=== PATIENT | male | born 1995 | race Caucasian/White ===

== ENCOUNTER 2020-01-09 16:09 | Inpatient (IN) | payer MEDICAID ==
[2020-01-09] MEDS ORDERED: SODIUM CHLORIDE 0.9% 1,000 ML IV ONE (17:57)
[2020-01-09] MEDS ORDERED: VANCOMYCIN IV PER PHARMACY 1 EACH MISC MISCELLANE PRN ×2 (17:57→23:42)
[2020-01-09] MEDS ORDERED: ACETAMINOPHEN TAB 500 MG TAB PO STA (17:59)
[2020-01-09] MEDS ORDERED: IBUPROFEN 600 MG TAB PO STA (17:59)
[2020-01-09] MEDS ORDERED: VANCOMYCIN 1,500 MG in SODIUM CHLORIDE 0.9% 250 ML IVPB STA (18:11)
[2020-01-09] MEDS ORDERED: diphenhydrAMINE 25 MG CAP PO STA (18:28)
[2020-01-09 19:00] LABS: Basophils % (A) 0 %; Eosinophils # (A) 0.1 k/uL (0-0.7); Eosinophils % (A) 2 %; HCT 42.5 % (39.0-53.0); HGB 14.1 gm/dL (13.0-17.5); Lymphocytes # (A) 1.5 k/uL (1.0-4.8); Lymphocytes % (A) 29 %; MCH 26.8 pg (25.0-35.0); MCHC 33.2 g/dL (31.0-37.0); MCV 80.6 fL (80.0-100.0); Mean Platelet Volume 9.8; Monocytes # (A) 0.3 k/uL (0-1.0); Monocytes % (A) 6 %; Neutrophils # (A) 3.1 k/uL (1.3-7.7); Neutrophils % (A) 62 %; RBC 5.27 m/uL (4.30-5.90); RDW 14.3 % (11.5-15.5); WBC 5.1 k/uL (3.8-10.6)
[2020-01-09 19:42] LABS: Platelet Count 68 k/uL (150-450)
[2020-01-09 19:57] LABS: ALT 15 U/L (4-49); AST 39 U/L (17-59); African American GFR (CKD) >90 (>60 ml/min/1.73 sqM); Albumin 4.7 g/dL (3.5-5.0); Alkaline Phosphatase 94 U/L (38-126); Anion Gap 9 mmol/L; Blood Urea Nitrogen 13 mg/dL (9-20); Calcium 9.3 mg/dL (8.4-10.2); Carbon Dioxide 25 mmol/L (22-30); Chloride 104 mmol/L (98-107); Glucose 96 mg/dL (74-99); Non-African American GFR(CKD) >90 (>60 ml/min/1.73 sqM); Potassium 4.4 mmol/L (3.5-5.1); Sodium 138 mmol/L (137-145); Total Bilirubin 0.5 mg/dL (0.2-1.3); Total Protein 8.1 g/dL (6.3-8.2)
[2020-01-09] MEDS ORDERED: NALOXONE 0.4 MG/ML 1 ML VIAL IV PRN (20:21)
[2020-01-09] MEDS ORDERED: ACETAMINOPHEN TAB 325 MG TAB PO PRN (20:21)
--- NOTE | 2020-01-09 20:21 | ED ---
General Adult HPI - General Source: patient Mode of arrival: ambulatory Limitations: no limitations <Elizabeth Villa - Last Filed: 01/09/20 20:15> <Priscila Felix - Last Filed: 01/12/20 13:23> - General Chief complaint: Extremity Injury, Upper Stated complaint: lt hand infection Time Seen by Provider: 01/09/20 16:49 - History of Present Illness Initial comments: 24-year-old male patient presents to the emergency department today for evaluation of left hand pain, swelling, redness. Patient states that symptoms started 2-3 days ago after he shot up with heroin. Patient states that he has significant pain to his thumb especially with any type of movement. Denies numbness or tingling to the hand. He denies any fever or chills. Denies any other medical problems. Patient denies any recent rash, cough, shortness of breath, chest pain, abdominal pain, nausea, vomiting, diarrhea, constipation, back pain, numbness, tingling, dizziness, weakness, hematuria, dysuria, urinary urgency, urinary frequency, headache, visual changes, or any other complaints. (Elizabeth Villa) - Related Data Home Medications Medication Instructions Recorded Confirmed Buprenorphine HCl/Naloxone HCl 1 tab SL BID 01/09/20 01/09/20 [Zubsolv 5.7-1.4 mg Tablet Sl] lamoTRIgine 150 mg PO DAILY 01/09/20 01/09/20 Allergies Allergy/AdvReac Type Severity Reaction Status Date / Time tree nut Allergy Anaphylaxis Verified 01/09/20 20:42 vancomycin AdvReac Rapid Verified 01/09/20 22:08 Heart Rate Review of Systems ROS Other: All systems not noted in ROS Statement are negative. <Elizabeth Villa - Last Filed: 01/09/20 20:15> ROS Other: All systems not noted in ROS Statement are negative. <Priscila Felix - Last Filed: 01/12/20 13:23> ROS Statement: Those systems with pertinent positive or pertinent negative responses have been documented in the HPI. Past Medical History Past Medical History: No Reported History History of Any Multi-Drug Resistant Organisms: None Reported Past Surgical History: No Surgical Hx Reported Past Psychological History: Bipolar Smoking Status: Never smoker Past Alcohol Use History: Rare Past Drug Use History: IV Drug Use, Marijuana, Opiates <Elizabeth Villa M - Last Filed: 01/09/20 20:15> General Exam Limitations: no limitations General appearance: alert, in no apparent distress, other (This is a well- developed, well-nourished adult male patient in no acute distress. Vital signs upon presentation are temperature 97.9F, pulse 62, respirations 17, blood pressure 134/88, pulse ox 100% on room air.) Eye exam: Present: normal appearance, PERRL, EOMI. Absent: scleral icterus, conjunctival injection, periorbital swelling ENT exam: Present: normal exam, normal oropharynx, mucous membranes moist Respiratory exam: Present: normal lung sounds bilaterally. Absent: respiratory distress, wheezes, rales, rhonchi, stridor Cardiovascular Exam: Present: regular rate, normal rhythm, normal heart sounds. Absent: systolic murmur, diastolic murmur, rubs, gallop, clicks GI/Abdominal exam: Present: soft, normal bowel sounds. Absent: distended, tenderness, guarding, rebound, rigid Extremities exam: Present: full ROM, tenderness (Left thumb, left thenar eminence), normal capillary refill, other (There is soft tissue swelling left hand, erythema overlying. Swelling is worse over the thenar eminence and the thumb. ). Absent: normal inspection, pedal edema, joint swelling, calf tenderness Neurological exam: Present: alert, oriented X3, CN II-XII intact Psychiatric exam: Present: normal affect, normal mood Skin exam: Present: warm, dry, intact, normal color. Absent: rash <Elizabeth Villa M - Last Filed: 01/09/20 20:15> Course Vital Signs 01/09/20 01/09/20 16:10 20:00 Temperature 97.9 F 98 F Pulse Rate 62 60 Respiratory 17 20 Rate Blood Pressure 134/88 136/99 O2 Sat by Pulse 100 99 Oximetry Medical Decision Making - Lab Data Result diagrams: 01/09/20 18:25 01/09/20 19:42 <Elizabeth Villa - Last Filed: 01/09/20 20:15> - Lab Data Result diagrams: 01/12/20 06:16 01/12/20 06:16 <Priscila Felix - Last Filed: 01/12/20 13:23> - Medical Decision Making 24-year-old pleasant male patient presents to the emergency department today for evaluation of left hand redness, swelling, pain. Physical examination did reveal swelling over the left hand more significant over the left thenar eminence in the thumb. There is fusiform tenderness over the thumb. Patient does have a history of IV drug use and admits to shooting up heroin 3 days ago. Labs reviewed and revealed normal white blood cell count. We'll admit to the hospital for IV antibiotics. Dr. Obregon is the patient's primary care physician he requests [facility] physician group. Dr. Davenport accepts admission and requests consult to hand surgery. (Elizabeth Villa) I was available for consultation in the emergency department. The history and physical exam were done by the midlevel provider. I was consulted for this patients care. I reviewed the case with the midlevel provider and based on their presentation of the patient, I agree with the assessment, medical decision making and plan of care as documented. I evaluated the patient myself and agree to hospital admission. Chart was dictated using [employer] dictation software. Attempts were made to correct any dictation errors however some typographical errors may persist. Patient was seen during a national state of emergency due to the Covid-19 pandemic. (Priscila Felix) - Lab Data Lab Results 01/09/20 01/09/20 01/10/20 Range/Units 18:25 19:42 06:20 WBC 5.1 6.9 (3.8-10.6) k/uL RBC 5.27 4.59 (4.30-5.90) m/uL Hgb 14.1 12.3 L (13.0-17.5) gm/dL Hct 42.5 37.2 L (39.0-53.0) % MCV 80.6 81.0 (80.0-100.0) fL MCH 26.8 26.7 (25.0-35.0) pg MCHC 33.2 32.9 (31.0-37.0) g/dL RDW 14.3 14.7 (11.5-15.5) % Plt Count 68 L 171 D (150-450) k/uL Neutrophils % 62 58 % Lymphocytes % 29 30 % Monocytes % 6 7 % Eosinophils % 2 2 % Basophils % 0 1 % Neutrophils # 3.1 4.0 (1.3-7.7) k/uL Lymphocytes # 1.5 2.1 (1.0-4.8) k/uL Monocytes # 0.3 0.5 (0-1.0) k/uL Eosinophils # 0.1 0.1 (0-0.7) k/uL Basophils # 0.0 0.0 (0-0.2) k/uL Manual Slide Review Performed Sodium 138 (137-145) mmol/L Potassium 4.4 (3.5-5.1) mmol/L Chloride 104 (98-107) mmol/L Carbon Dioxide 25 (22-30) mmol/L Anion Gap 9 mmol/L BUN 13 (9-20) mg/dL Creatinine 0.65 L (0.66-1.25) mg/dL Est GFR (CKD-EPI)AfAm >90 (>60 ml/min/1.73 sqM) Est GFR (CKD-EPI)NonAf >90 (>60 ml/min/1.73 sqM) Glucose 96 (74-99) mg/dL Calcium 9.3 (8.4-10.2) mg/dL Total Bilirubin 0.5 (0.2-1.3) mg/dL AST 39 (17-59) U/L ALT 15 (4-49) U/L Alkaline Phosphatase 94 (38-126) U/L Total Protein 8.1 (6.3-8.2) g/dL Albumin 4.7 (3.5-5.0) g/dL TSH (0.465-4.680) mIU/L Free T4 (0.78-2.19) ng/dL Vancomycin Trough ug/mL 01/10/20 01/11/20 01/11/20 Range/Units 06:20 07:08 07:08 WBC (3.8-10.6) k/uL RBC (4.30-5.90) m/uL Hgb (13.0-17.5) gm/dL Hct (39.0-53.0) % MCV (80.0-100.0) fL MCH (25.0-35.0) pg MCHC (31.0-37.0) g/dL RDW (11.5-15.5) % Plt Count (150-450) k/uL Neutrophils % % Lymphocytes % % Monocytes % % Eosinophils % % Basophils % % Neutrophils # (1.3-7.7) k/uL Lymphocytes # (1.0-4.8) k/uL Monocytes # (0-1.0) k/uL Eosinophils # (0-0.7) k/uL Basophils # (0-0.2) k/uL Manual Slide Review Sodium 141 (137-145) mmol/L Potassium 4.1 (3.5-5.1) mmol/L Chloride 105 (98-107) mmol/L Carbon Dioxide 25 (22-30) mmol/L Anion Gap 11 mmol/L BUN 13 (9-20) mg/dL Creatinine 0.76 (0.66-1.25) mg/dL Est GFR (CKD-EPI)AfAm >90 (>60 ml/min/1.73 sqM) Est GFR (CKD-EPI)NonAf >90 (>60 ml/min/1.73 sqM) Glucose 87 (74-99) mg/dL Calcium 9.0 (8.4-10.2) mg/dL Total Bilirubin 0.5 (0.2-1.3) mg/dL AST 41 (17-59) U/L ALT 14 (4-49) U/L Alkaline Phosphatase 77 (38-126) U/L Total Protein 6.9 (6.3-8.2) g/dL Albumin 4.0 (3.5-5.0) g/dL TSH 5.540 H (0.465-4.680) mIU/L Free T4 1.36 (0.78-2.19) ng/dL Vancomycin Trough 13.9 ug/mL Disposition Decision to Admit Reason: Admit from EC Decision Date: 01/09/20 Decision Time: 20:21 <Elizabeth Villa - Last Filed: 01/09/20 20:15> <Priscila Felix - Last Filed: 01/12/20 13:23> Clinical Impression: Cellulitis of left hand Disposition: ADMITTED IP TO THIS [facility] Condition: Serious
[2020-01-09] MEDS: KETOROLAC 30 MG/ML 1 ML VIAL IVP PRN (23:14)
--- NOTE | 2020-01-09 23:56 | P.HPIM ---
History of Present Illness H&P Date: 01/09/20 Chief Complaint: left hand swelling and reddness 24 year old male with history of IV drug abuse patient admits to relapsing last week , when he trying to inject oxycodone but missed the vein of his forearm. he admits to having bactremia in the past due to IVDA he claims that he was fine up until 2 days ago when he noticed swelling and erythema of his left hand with progressive swelling with painful and limited range of motion of his left hand fingers. he denies any numbness or tingling over his left hand, denies fever, but reports chills. he denies any history of endocarditis. he otherwise denies any other injuries to his left hand, denies any URI symptoms , abd pain , nausea or vomiting, denies any chest pain or trouble breathing. denies sick contact with others. denies any visions changes, or urinary symptoms. denies abd pain , or changes in bowel habits. patient reports shooting pain 10/10 in severity when he tries to move his left fingers radaiting proximally to his left forearm. Review of Systems Pertinent positives as noted in HPI. All other systems were reviewed and are negative Past Medical History Past Medical History: No Reported History Additional Past Medical History / Comment(s): IVDA History of Any Multi-Drug Resistant Organisms: None Reported Past Surgical History: No Surgical Hx Reported Past Psychological History: Bipolar Smoking Status: Never smoker Past Alcohol Use History: Rare Past Drug Use History: IV Drug Use, Marijuana, Opiates - Past Family History Mother Family Medical History: Hypertension Additional Family Medical History / Comment(s): Kidney issue, OCD/Bipolar and other mental health issues Medications and Allergies Home Medications Medication Instructions Recorded Confirmed Type Buprenorphine HCl/Naloxone HCl 1 tab SL BID 01/09/20 01/09/20 History [Zubsolv 5.7-1.4 mg Tablet Sl] lamoTRIgine 150 mg PO DAILY 01/09/20 01/09/20 History Allergies Allergy/AdvReac Type Severity Reaction Status Date / Time tree nut Allergy Anaphylaxis Verified 01/09/20 20:42 vancomycin AdvReac Rapid Verified 01/09/20 22:08 Heart Rate Physical Exam Vitals: Vital Signs Temp Pulse Resp BP Pulse Ox 01/09/20 20:00 98 F 60 20 136/99 99 04/15/20 16:10 97.9 F 62 17 134/88 100 Intake and Output 01/09/20 01/09/20 01/09/20 06:59 14:59 22:59 Other: Weight 70.307 kg Constitutional: No acute distress, conversant, pleasant Eyes: Anicteric sclerae, moist conjunctiva, no lid-lag Pupils equal round reactive to light ENMT: NC/AT Oropharynx clear, no erythema, or exudates Neck: Supple, FROM, no masses, or JVD No carotid bruits No thyromegaly Lungs: Clear to auscultation Clear to percussion Normal respiratory effort, no accessory muscle use Cardiovascular: Heart regular in rate and rhythm, No murmurs, gallops, or rubs No peripheral edema Abdominal: Soft Nontender, no guarding, rebound or rigidity Abdomen moving with respiration Normoactive bowel sounds No hepatomegaly, No splenomegaly No palpable mass No abdominal wall hernia noted Skin: Normal temperature, tone, texture, turgor No induration No subcutaneous nodules No rash, lesions No ulcers Extremities: erythema and swelling over the left hand limited range of motion of his left fingers, capillary refill immediate , no open wounds no drainage. No digital cyanosis No clubbing Pedal pulses intact and symmetrical Radial pulses intact and symmetrical No calf tenderness Psychiatric: Alert and oriented to person, place and time Appropriate affect fair judgement Neuro Muscles Strength 5/5 in all 4 extremities , limitation over left hand due to above Sensation to light touch grossly present throughout Cranial nerves II-XII grossly intact No focal sensory deficits Lymphatics: no palpable cervical or supraclavicular , or inguinal lymph nodes Results CBC & Chem 7: 01/09/20 18:25 01/09/20 19:42 Labs: Abnormal Lab Results - Last 24 Hours (Table) 01/09/20 01/09/20 Range/Units 18:25 19:42 Plt Count 68 L (150-450) k/uL Creatinine 0.65 L (0.66-1.25) mg/dL Assessment and Plan Assessment: 24 year old male with IVDA comes in after missing a vein during IV drug use, a week ago, and now coming with swelling and erythema over left hand of 2 days duration . suspected cellulitis anticipated length of stay > 2 midnights. 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 toradol for pain control and swelling elevated left hand tylenol for fever IVF hydration with normal saline. patient counseled to avoid drug of abuse hand surgery consult DVT ppx mechanical CODE STATUS:full code Discussed with: Patient, ER, RN Anticipated length of stay > than [address]: home A total of 70 minutes was spent on the care of this complex patient more than 50% of the time was spent in counseling and care coordination.
[2020-01-10] MEDS: SODIUM CHLORIDE 0.9% 1,000 ML IV SCH ×4 (00:15→20:35)
[2020-01-10] MEDS: diphenhydrAMINE 50 MG/ML 1 ML VIAL IVP PRN ×3 (00:15→22:49)
[2020-01-10] MEDS: VANCOMYCIN 1,250 MG in SODIUM CHLORIDE 0.9% 250 ML IVPB SCH ×3 (02:18→22:50)
[2020-01-10 07:17] LABS: Basophils % (A) 1 %; Eosinophils # (A) 0.1 k/uL (0-0.7); Eosinophils % (A) 2 %; HCT 37.2 % (39.0-53.0); HGB 12.3 gm/dL (13.0-17.5); Lymphocytes # (A) 2.1 k/uL (1.0-4.8); Lymphocytes % (A) 30 %; MCH 26.7 pg (25.0-35.0); MCHC 32.9 g/dL (31.0-37.0); Mean Platelet Volume 7.2; Monocytes # (A) 0.5 k/uL (0-1.0); Monocytes % (A) 7 %; Neutrophils % (A) 58 %; RBC 4.59 m/uL (4.30-5.90); RDW 14.7 % (11.5-15.5); WBC 6.9 k/uL (3.8-10.6)
[2020-01-10 07:18] LABS: Platelet Count 171 k/uL (150-450)
[2020-01-10 07:25] LABS: ALT 14 U/L (4-49); AST 41 U/L (17-59); African American GFR (CKD) >90 (>60 ml/min/1.73 sqM); Alkaline Phosphatase 77 U/L (38-126); Anion Gap 11 mmol/L; Blood Urea Nitrogen 13 mg/dL (9-20); Carbon Dioxide 25 mmol/L (22-30); Chloride 105 mmol/L (98-107); Glucose 87 mg/dL (74-99); Non-African American GFR(CKD) >90 (>60 ml/min/1.73 sqM); Potassium 4.1 mmol/L (3.5-5.1); Sodium 141 mmol/L (137-145); Total Bilirubin 0.5 mg/dL (0.2-1.3); Total Protein 6.9 g/dL (6.3-8.2)
[2020-01-10] MEDS: lamoTRIgine 100 MG TAB PO SCH (07:39)
[2020-01-10 10:42] VITALS: BMI 18.8
[2020-01-10] MEDS: ZUBSOLV SUBLINGUAL SCH ×2 (11:03→17:55)
--- NOTE | 2020-01-10 11:17 | CONS ---
CONSULTATION PULMONARY/CRITICAL CARE CONSULTATION: REASON FOR CONSULTATION: Cellulitis. DATE OF SERVICE: 01/10/2020 A 24-year-old male, well known to me. For a long period of time, I was his primary care physician. He does have a history of underlying mild asthma, which does not require treatment at this time. Anyway, he apparently was seen at the Urgent Care in [place] just a few days ago, maybe a week or so ago, maybe a bit longer for an infection in his left hand. At that time, he received Keflex 500 mg 3 times a day for 5 days. He states that initially it seemed like his hand improved. He describes pain, tenderness, swelling of his left hand, left wrist, left forearm all the way up to the elbow. He came into the emergency room yesterday to be evaluated. He states that it is quite painful to the touch, particularly in the left forearm area. It also is tingly in his hand. There is no fever or chills. The patient does have a history of previous IV drug abuse. More recently, he states that he has not been shooting up with any drugs, but rather he draws blood out of the vein and reinject the blood in his vein. Anyway, he denies doing IV drugs at this time. . ALLERGIES: Include TREE NUTS. MEDICATIONS: At home include I believe Suboxone and Lamictal. PRIMARY CARE PHYSICIAN: Dr. Corrales, used to be Dr. Ng. MEDICAL HISTORY: Otherwise unremarkable other than the mild asthma, which he does not require treatment for anymore. SURGICAL HISTORY: Unremarkable. He also has a history of bipolar disorder. Nonsmoker. Uses alcohol rarely. Has used opiates, IV drugs in the past and marijuana. FAMILY HISTORY: Unremarkable. Mother is healthy, who has a history of cat scratch fever and father has a history of chronic back pain. REVIEW OF SYSTEMS: CONSTITUTIONAL: Negative. NEUROLOGIC: Negative. HEENT: Negative. CARDIOVASCULAR: Negative. PULMONARY: Negative. GI: Negative. : Negative. RHEUMATOLOGIC: Negative. IMMUNOLOGIC: Negative. ENDOCRINOLOGIC: Negative. DERMATOLOGIC: Negative. MUSCULOSKELETAL: Pain, tenderness, swelling, erythema, warmth of the left hand, wrist, forearm all the way up to the elbow. Current vital signs are reviewed. Temperature is 97.6, heart rate 60, respiratory rate 16, blood pressure 108/60 with mean 76, room air saturation 96%. Appears in no acute distress. HEENT: Examination is grossly unremarkable. NECK: Supple, full range of motion. No adenopathy or thyromegaly. No neck vein distention. CARDIOVASCULAR: Examination reveals regular rhythm and rate. Heart rate 60 beats per minute. S1, S2 normal. There is no murmur. LUNGS: Reveal clear breath sounds equal. ABDOMEN: Soft. Bowel sounds are heard. EXTREMITIES: Normal except for the left upper extremity. As mentioned, there is pain and tenderness on palpation particularly to the left forearm. The left hand and wrist are quite swollen. Mobility is reduced. There is an area in the distal left forearm that is more raised and erythematous. I do not feel any axillary adenopathy. There is no lymphangitic streaking. Extremities otherwise normal. SKIN: Without rash. NEUROLOGIC: Examination is brief but nonfocal. LABS: Reviewed. White count 6.9, hemoglobin 12.3, hematocrit 37.2, platelet count normal. Sodium, potassium, chloride, CO2 normal. BUN and creatinine normal. The electrolyte profile otherwise unremarkable. I do not see that a drug screen was done and it probably should have been done. No x-rays have been done. Hand surgeon has been consulted as has the ID doctor. Medications currently include Tylenol, Benadryl, Toradol, Lamictal, Narcan, and vancomycin. ASSESSMENT: 1. Left hand, wrist and forearm cellulitis, presumably secondary to either use of IV drugs and/or injection of the patient's own blood. 2. History of bipolar disorder. 3. History of previous drug abuse. 4. History of mild asthma, which is not requiring treatment at this time. PLAN: Will await input from Infectious Disease and orthopedist. Additional recommendations and suggestions are forthcoming. Will follow along. Prognosis is guarded. The patient denies taking any IV drugs at this time. A confirmatory blood drug screen might be in order. I will leave that up to the primary. No additional recommendations are made. His current primary care physician is Dr. Corrales. [id number] / MARLENN: [id number] /
--- NOTE | 2020-01-10 13:02 | P.CNOR ---
History of Present Illness - [facility] Consult date: 01/10/20 Consult reason: other History of present illness: Patient is a 24-year-old male who presented to [facility] yesterday evening with regards to pain and swelling of his left hand. Patient has a known history of IV drug abuse, he recently relapsed 2-3 days ago and injected into his left forearm. He subsequently developed pain and swelling of the hand and fingers on the left side. Initially it was the entire hand, since being admitted to the hospital and receiving some IV antibiotics this has im proved throughout most of the hand except the thumb region. Patient admits to having previous abscesses from IV drug use, he's underwent I&D procedures at urgent care. Patient denies any previous surgery involving the left hand or wrist. Again he localizes most of the pain to the thenar eminence region of the left hand. He denies any numbness or tingling of the hand. He has good sensation throughout the entire hand and wrist. Besides the recent use of drugs, he denies any trauma to the left upper extremity. Currently patient denies any fevers, chills, episodes of nausea vomiting. Review of Systems Constitutional: Reports as per HPI Past Medical History Past Medical History: No Reported History Additional Past Medical History / Comment(s): Asthma as a child, IV drug addiction, past "blood infection" from dental procedure. History of Any Multi-Drug Resistant Organisms: None Reported Past Surgical History: No Surgical Hx Reported Additional Past Surgical History / Comment(s): Tonsils Past Psychological History: Bipolar Smoking Status: Never smoker Past Alcohol Use History: Rare Additional Past Alcohol Use History / Comment(s): Once a year Past Drug Use History: IV Drug Use, Marijuana, Opiates Additional Drug Use History / Comment(s): Smokes every couple days. Patient had been clean for 1 year and 6 days ago did IV drug use and now hand is infected. - Past Family History Mother Family Medical History: Hypertension Additional Family Medical History / Comment(s): Kidney issue, OCD/Bipolar and other mental health issues Medications and Allergies Home Medications Medication Instructions Recorded Confirmed Type Buprenorphine HCl/Naloxone HCl 1 tab SL BID 01/09/20 01/09/20 History [Zubsolv 5.7-1.4 mg Tablet Sl] lamoTRIgine 150 mg PO DAILY 01/09/20 01/09/20 History Allergies Allergy/AdvReac Type Severity Reaction Status Date / Time tree nut Allergy Anaphylaxis Verified 01/09/20 20:42 vancomycin AdvReac Rapid Verified 01/09/20 22:08 Heart Rate Physical Examination Left upper extremity: No obvious open lesions or sores present throughout the upper extremity There is some ecchymosis noted in the mid forearm region at the site of injection, there is no significant tenderness with palpation in that area. I'm unable to appreciate any fluctuance in that area Exam of the hand, there is generalized erythema noted more in the thenar eminence aspect of the thumb. There is also notable soft tissue swelling on the palmar and dorsal side of the hand in the thumb region He is able to extend and flex digits 2 through 5 with no difficulty or pain reproduced, there is some discomfort when he extends and flexes the thumb. His sensation to light touch throughout the extremity is intact, his radial pulses 2+ Results - Labs Labs: Abnormal Lab Results - Last 24 Hours (Table) 01/09/20 01/09/20 01/10/20 Range/Units 18:25 19:42 06:20 Hgb 12.3 L (13.0-17.5) gm/dL Hct 37.2 L (39.0-53.0) % Plt Count 68 L (150-450) k/uL Creatinine 0.65 L (0.66-1.25) mg/dL H & H 01/09/20 01/10/20 Range/Units 18:25 06:20 Hgb 14.1 12.3 L (13.0-17.5) gm/dL Hct 42.5 37.2 L (39.0-53.0) % Result Diagrams: 01/10/20 06:20 01/10/20 06:20 Assessment and Plan Plan: Assessment: Left hand pain/swelling Left hand cellulitis Recent use of IV drugs, history of IV drug abuse Plan: I was able to discuss the case, including both physical exam findings and imaging studies my attending Dr. Rogers. Taking into consideration the patient's lab results of a normal white count and also the improvement in his physical exam with the current use of IV antibiotics, we would like to continue conservative management Recommend icing and basic range of motion exercises of the hand, avoid excess use No obvious evidence of flexor tenosynovium by this at this time No obvious evidence of localized abscess involving the left hand Patient will be followed daily to check for worsening/improvement of current symptoms and reevaluation of treatment Other medical stressed recommendations Time with Patient: Less than 30
[2020-01-10] MEDS: KETOROLAC 30 MG/ML 1 ML VIAL IVP PRN (14:41)
--- NOTE | 2020-01-10 17:28 | P.PN ---
Subjective Progress Note Date: 01/10/20 Principal diagnosis: Left hand cellulitis Patient is a 24-year-old male with history of IV drug abuse who states he's reinjected his [place] missed [place] a week ago on presented with swelling and some erythema over his left hand 2 days. Patient started on IV antibiotics states his pain was improving but he was seen by me earlier today Objective - Vital Signs Vital signs: Vital Signs Temp 97.8 F 01/10/20 11:58 Pulse 58 L 01/10/20 11:58 Resp 17 01/10/20 11:58 BP 134/51 01/10/20 11:58 Pulse Ox 98 01/10/20 11:58 Intake & Output 01/09/20 01/10/20 01/10/20 18:59 06:59 18:59 Intake Total 2230 750 Balance 2230 750 Weight 70.307 kg 70.307 kg 70.307 kg Intake: Intake, IV Titration 1030 390 Amount Sodium Chloride 0.9% 1, 780 390 000 ml @ 130 mls/hr IV . Q7H42M [facility] Rx#:[id number] Vancomycin 1,250 mg In 250 Sodium Chloride 0.9% 250 ml @ 125 mls/hr IVPB Q8H [facility] Rx#:[id number] Oral 1200 360 Other: Voiding Method Toilet Toilet # Voids 2 3 - Constitutional General appearance: Present: no acute distress - Respiratory Respiratory: bilateral: CTA - Cardiovascular Rhythm: regular - Gastrointestinal General gastrointestinal: Present: normal bowel sounds - Integumentary Integumentary Comment(s): Slight erythema of the left left ability to move his fingers on the left and decreased range of motion of the thumb - Labs CBC & Chem 7: 01/10/20 06:20 01/10/20 06:20 Labs: Abnormal Lab Results - Last 24 Hours (Table) 01/09/20 01/09/20 01/10/20 Range/Units 18:25 19:42 06:20 Hgb 12.3 L (13.0-17.5) gm/dL Hct 37.2 L (39.0-53.0) % Plt Count 68 L (150-450) k/uL Creatinine 0.65 L (0.66-1.25) mg/dL Assessment and Plan (1) Cellulitis of left hand Narrative/Plan: Appreciate orthopedic input, patient is responding to IV antibiotics plan at this time is conservative management continue have antibiotics for pain control, patient does not have IV access midline placement continue vancomycin 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
--- NOTE | 2020-01-10 22:15 | CONS ---
CONSULTATION DATE OF SERVICE: 01/10/2020 REASON FOR CONSULTATION: Left forearm and hand abscess. HISTORY OF PRESENT ILLNESS: The patient is a 24-year-old male with past medical history significant for IV drug use. Apparently the patient was trying to take oxycodone but he missed the vein of his forearm and ended up developing swelling and erythema of his left hand. The patient injected about 3 days ago and the swelling and redness started 2 days later with progressive swelling and redness involving mostly the base of his left thumb. He presented to the ER. The patient is describing the pain to be more of a dull aching to throbbing, intensity almost 6 to 7 out of 10, and no radiation. The patient denies having any drainage. Denies high-grade fever or chills. With these symptoms, the patient was evaluated by the ER physician on arrival in the ER. The patient has been afebrile. He did have a normal white count. Blood cultures were obtained which are currently pending. Patient has been started on vancomycin and admitted to hospital. Infectious Disease was consulted for further recommendations regarding antibiotic therapy. REVIEW OF SYSTEMS: Positive points have been mentioned in HPI. Rest of the systems are negative. PAST MEDICAL HISTORY: Asthma, IV drug addiction, previous history of abscess and bipolar disorder. PAST SURGICAL HISTORY: Tonsillectomy and drainage of an abscess. SOCIAL HISTORY: He does admit to IV drug use and marijuana and opiates. Smokes every couple of days. Rarely drinks. FAMILY HISTORY: Hypertension and kidney issues. ALLERGIES: TREE NUTS AND VANCOMYCIN, though he has tolerated vancomycin without any problem. MEDICATIONS: The patient is currently on vancomycin 1250 q.8 hours. He is getting IV fluid, Narcan, Lamictal, Toradol, Benadryl and Tylenol. PHYSICAL EXAMINATION: Blood pressure 114/66, pulse of 67, temperature 98. He is 100% on room air. General description is a young male up in the room in no distress. HEENT examination shows no pallor or scleral icterus. Oral mucosa membrane is dry. No pharyngeal erythema or thrush. NECK: Trachea is central. No thyromegaly. LUNGS: Unlabored breathing. Clear to auscultation anteriorly. No wheeze or crackle. HEART: S1, S2. Regular rate and rhythm. ABDOMEN: Soft. No tenderness. No guarding or rigidity. EXTREMITIES: No edema of the feet. Examination of left hand: At the base of the thumb he did have swelling. Slightly tender to touch, but no significant warmth. Fluctuation but no drainage. Neurologically the patient is awake, alert, oriented x3. Mood and affect normal. LABS: Hemoglobin is 12.3 with white count 6.9, BUN of 13, creatinine 0.76. Electrolytes have been normal. Liver enzymes normal. Blood culture has been negative so far. DIAGNOSTIC IMPRESSION AND PLAN: Patient with left hand swelling and redness with concern for possible hematoma versus an abscess in this patient who with a history of IV drug use, though the patient denied injection of any drugs; rather, aspirating and then injecting his blood back. Previous history of abscess. Clinically not behaving as an abscess, with no fever or any elevated white count and no significant redness. PLAN: 1. Will keep the patient on vancomycin, Pharmacy to dose, target of 15, while waiting for the culture to finalize. 2. Patient has already been seen by Orthopedic; planning for no drainage at this point. 3. Will check a CRP and sed rate in the morning and repeat a CBC. 4. We will follow his clinical condition and culture to further adjust medication if needed. Thank you for this consultation. Will follow this patient along with you. MMODL / IJN: [id number] /
[2020-01-11] MEDS ORDERED: VANCOMYCIN TROUGH DUE 1 EACH MISC MISCELLANE ONE (01:00)
[2020-01-11] MEDS: VANCOMYCIN 1,250 MG in SODIUM CHLORIDE 0.9% 250 ML IVPB SCH ×2 (08:03→15:51)
[2020-01-11] MEDS: diphenhydrAMINE 50 MG/ML 1 ML VIAL IVP PRN ×3 (08:03→22:18)
[2020-01-11] MEDS: lamoTRIgine 100 MG TAB PO SCH (08:03)
[2020-01-11 09:30] LABS: T4, Free (Free Thyroxine) 1.36 ng/dL (0.78-2.19)
[2020-01-11] MEDS: ZUBSOLV SUBLINGUAL SCH ×2 (09:36→18:11)
[2020-01-11] MEDS: SODIUM CHLORIDE 0.9% 1,000 ML IV SCH ×3 (10:23→18:11)
--- NOTE | 2020-01-11 11:59 | P.PN ---
Subjective Progress Note Date: 01/11/20 Principal diagnosis: This is a 24-year-old active gentleman well known to our service, he has been a primary care patient of Dr. Mindi rendon for quite some time. He does have a histo ry of underlying mild asthma, which does not require treatment currently. He was seen at the urgent care in [place] a few days ago for infection in his left hand. At that time he received Keflex 500 mg 3 times a day for 5 days. Initially it seemed his hand had improved. He describes pain, tenderness, swelling of the left hand, left wrist, left forearm all the way up to the elbow. He came into the emergency room 01/09/2020 to be evaluated and stated it is quite painful to the touch, particularly in the left forearm area. He has describes tingling in his hand without any fever or chills. He does have history of previous IV drug abuse. Most recently, he states that he has not been shooting up with any drugs, but rather he draws blood out of the vein and re-injects the blood in his vein. This morning, 01/11/2020, he is seen on the medical surgical unit with Dr. Jasso. He is currently laying in bed sleeping in no acute distress. Remains afebrile, hemodynamically stable, currently on room air with oxygen saturation 97%. Blood cultures negative 24 hours. Labs today TSH 5.540 with free T4 1.36. Currently on IV vancomycin. The patient was seen by orthopedics who recommended conservative management, no surgical intervention at this time, place to be applied and basic range of motion exercises to be utilized. Infectious disease recommends continuing IV vancomycin while waiting for cultures to finalize. No new concerns. Objective - Vital Signs Vital signs: Vital Signs Temp 97.8 F 01/11/20 05:00 Pulse 63 01/11/20 05:00 Resp 16 01/11/20 05:00 BP 111/54 01/11/20 05:00 Pulse Ox 97 01/11/20 05:00 Intake & Output 01/10/20 01/11/20 01/11/20 18:59 06:59 18:59 Intake Total 990 1430 Balance 990 1430 Weight 70.307 kg Intake: Intake, IV Titration 390 1430 Amount Sodium Chloride 0.9% 1, 390 1430 000 ml @ 130 mls/hr IV . Q7H42M [facility] Rx#:[id number] Oral 600 Other: Voiding Method Toilet Toilet Toilet # Voids 3 1 - Constitutional Constitutional Comment(s): Appears comfortable General appearance: Present: cooperative, no acute distress - Respiratory Details: Lungs sounds clear bilaterally. Respirations even, nonlabored. Currently on room air with oxygen saturation 97%. - Cardiovascular Details: S1, S2 present, no murmur. Regular rate and rhythm. Palpable peripheral pulses bilaterally. No edema present except for some edema in the left upper e xtremity. - Gastrointestinal Gastrointestinal Comment(s): Abdomen soft, nontender, nondistended. No organomegaly present. Active bowel sounds present 4 quadrants. Tolerating diet. - Integumentary Integumentary Comment(s): Skin is warm and dry. Left hand and wrist are swollen. No lymphangitic streaking present. - Neurologic Neurologic: Present: CNII-XII intact - Musculoskeletal Musculoskeletal: Present: gait normal, strength equal bilaterally - Psychiatric Psychiatric: Present: A&O x's 3, appropriate affect, intact judgment & insight - Allied health notes Allied health notes reviewed: nursing - Labs CBC & Chem 7: 01/10/20 06:20 01/10/20 06:20 Labs: Abnormal Lab Results - Last 24 Hours (Table) 01/11/20 Range/Units 07:08 TSH 5.540 H (0.465-4.680) mIU/L Microbiology - Last 24 Hours (Table) 01/09/20 18:25 Blood Culture - Preliminary Blood No Growth after 24 hours Assessment and Plan Assessment: Left hand, wrist and forearm cellulitis, presumably secondary to either use of IV drugs and/or injection of patient's own blood History of bipolar disorder History of previous IV drug abuse History of mild asthma, not currently requiring treatment Plan: Continue antibiotics per infectious disease recommendations Continue ice, range of motion to left arm per orthopedic recommendations Continue Toradol and Tylenol for pain control Stable from a pulmonary standpoint I, the cosigning physician, performed a history & physical examination of the patient. Lungs sounds are clear bilaterally. Maintaining good O2 saturations in the 90s on room air. I discussed the assessment and plan of care with my nurse practitioner, Nena Candelaria. I attest to the above note as dictated by her. Time with Patient: Greater than 30
--- NOTE | 2020-01-11 12:42 | P.PN ---
Subjective Progress Note Date: 01/11/20 Principal diagnosis: Left hand cellulitis Patient evaluated today at bedside. He is resting comfortably. He notes the discomfort in the thumb region on the left hand is improved significantly. He notes no acute fevers/chills, episodes of nausea or vomiting. Objective - Vital Signs Vital signs: Vital Signs Temp 97.9 F 01/11/20 11:34 Pulse 66 01/11/20 11:34 Resp 18 01/11/20 11:34 BP 115/64 01/11/20 11:34 Pulse Ox 100 01/11/20 11:34 Intake & Output 01/10/20 01/11/20 01/11/20 18:59 06:59 18:59 Intake Total 990 1430 Balance 990 1430 Weight 70.307 kg Intake: Intake, IV Titration 390 1430 Amount Sodium Chloride 0.9% 1, 390 1430 000 ml @ 130 mls/hr IV . Q7H42M [facility] Rx#:[id number] Oral 600 Other: Voiding Method Toilet Toilet Toilet # Voids 3 1 - Exam Left upper extremity: Erythema and soft tissue swelling involving the thenar eminence aspect of the left hand has improved significantly. No open lesions or sores are visualized. No areas of fluctuance appreciated .Range of motion of all the fingers with regards to extension and flexion are intact, no pain is reproduced with this. Sensation to light touch throughout that extremity is intact. His radial pulses 2+. - Labs CBC & Chem 7: 01/10/20 06:20 01/10/20 06:20 Labs: Abnormal Lab Results - Last 24 Hours (Table) 01/11/20 Range/Units 07:08 TSH 5.540 H (0.465-4.680) mIU/L Microbiology - Last 24 Hours (Table) 01/09/20 18:25 Blood Culture - Preliminary Blood No Growth after 24 hours Assessment and Plan Plan: Assessment: Left hand pain/swelling Left hand cellulitis Recent use of IV drugs, history of IV drug abuse Plan: Continue conservative management, basic range of motion exercises along with ice. No evidence of flexor tenosynovitis/abscess Recommending continuing IV antibiotics at this time and awaiting final cultures Other medical stressed recommendations We'll be available for any further questions regarding this patient Time with Patient: Less than 30
--- NOTE | 2020-01-11 16:57 | PN ---
PROGRESS NOTE DATE OF SERVICE: 01/11/2020 REASON FOR FOLLOWUP: Left wrist and hand possible abscess and cellulitis. INTERVAL HISTORY: The patient is currently afebrile, has been breathing comfortably. Patient denies having any chest pain or shortness of breath or cough. No nausea, no vomiting. Overall pain and swelling to the left wrist and the hand area has decreased. PHYSICAL EXAMINATION: Blood pressure is 115/65 with a pulse of 66, temperature 97.9, he is 100% on room air. General description is a middle-aged male, up in the bed in no distress. RESPIRATORY SYSTEM: Unlabored breathing, clear to auscultation anteriorly. HEART: S1-S2, regular rate and rhythm. ABDOMEN: Soft, no tenderness. Left wrist and the hand area swelling have decreased. No fluctuation, induration or drainage was noticed. DIAGNOSTIC IMPRESSION AND PLAN: Patient with a left wrist and hand cellulitis with concern for possible hematoma versus an abscess. The patient clinically may be having more of a hematoma than an abscess. Will keep the patient on vancomycin while waiting for the culture to finalize and repeat inflammatory markers for tomorrow. Continue supportive care. MMODL / IJN: [id number] /
--- NOTE | 2020-01-11 18:26 | P.PN ---
Subjective Progress Note Date: 01/11/20 Principal diagnosis: Left wrist cellulitis Patient is a 24-year-old male who presented with swelling patient has a history of IV drug abuse he states that he mistakenly injured his IV drug use he was started on IV vancomycin seen by infectious disease and surgery Objective - Vital Signs Vital signs: Vital Signs Temp 97.9 F 01/11/20 11:34 Pulse 66 01/11/20 11:34 Resp 18 01/11/20 11:34 BP 115/64 01/11/20 11:34 Pulse Ox 100 01/11/20 11:34 Intake & Output 01/10/20 01/11/20 01/11/20 18:59 06:59 18:59 Intake Total 990 1430 Balance 990 1430 Weight 70.307 kg Intake: Intake, IV Titration 390 1430 Amount Sodium Chloride 0.9% 1, 390 1430 000 ml @ 130 mls/hr IV . Q7H42M [facility] Rx#:[id number] Oral 600 Other: Voiding Method Toilet Toilet Toilet # Voids 3 1 - Constitutional General appearance: Present: cooperative - Respiratory Respiratory: bilateral: CTA - Cardiovascular Rhythm: regular - Gastrointestinal General gastrointestinal: Present: normal bowel sounds - Neurologic Neurologic: Present: CNII-XII intact - Musculoskeletal Musculoskeletal Comment(s): Improved swelling and movement of the left hand - Labs CBC & Chem 7: 01/10/20 06:20 01/10/20 06:20 Labs: Abnormal Lab Results - Last 24 Hours (Table) 01/11/20 Range/Units 07:08 TSH 5.540 H (0.465-4.680) mIU/L Microbiology - Last 24 Hours (Table) 01/09/20 18:25 Blood Culture - Preliminary Blood No Growth after 24 hours Assessment and Plan (1) Cellulitis of left hand Current Visit: Yes Status: Acute Code(s): L03.114 - CELLULITIS OF LEFT UPPER LIMB SNOMED Code(s): 42377158 Plan: Cellulitis of the right hand, IV drug use: Appreciate surgeon and infectious disease input at this time no abscess or tenosynovitis is present we'll continue IV vancomycin pending final culture results
[2020-01-12] MEDS: diphenhydrAMINE 50 MG/ML 1 ML VIAL IVP PRN ×2 (03:23→12:36)
[2020-01-12] MEDS: VANCOMYCIN 1,250 MG in SODIUM CHLORIDE 0.9% 250 ML IVPB SCH ×2 (03:23→12:32)
[2020-01-12 07:48] LABS: Basophils % (A) 0 %; Eosinophils # (A) 0.3 k/uL (0-0.7); Eosinophils % (A) 4 %; HCT 36.9 % (39.0-53.0); HGB 12.3 gm/dL (13.0-17.5); Lymphocytes # (A) 1.7 k/uL (1.0-4.8); Lymphocytes % (A) 25 %; MCH 26.5 pg (25.0-35.0); MCHC 33.3 g/dL (31.0-37.0); MCV 79.5 fL (80.0-100.0); Mean Platelet Volume 8.1; Monocytes # (A) 0.5 k/uL (0-1.0); Monocytes % (A) 7 %; Neutrophils # (A) 4.3 k/uL (1.3-7.7); Neutrophils % (A) 63 %; Platelet Count 155 k/uL (150-450); RBC 4.64 m/uL (4.30-5.90); RDW 14.2 % (11.5-15.5); WBC 6.8 k/uL (3.8-10.6)
[2020-01-12 08:16] LABS: African American GFR (CKD) >90 (>60 ml/min/1.73 sqM); C Reactive Protein 24.3 mg/L (<10.0); Non-African American GFR(CKD) >90 (>60 ml/min/1.73 sqM)
[2020-01-12] MEDS: lamoTRIgine 100 MG TAB PO SCH (12:28)
[2020-01-12] MEDS: ZUBSOLV SUBLINGUAL SCH ×2 (12:29→18:13)
[2020-01-12] MEDS: SODIUM CHLORIDE 0.9% 1,000 ML IV SCH ×2 (12:35→18:13)
--- NOTE | 2020-01-12 12:55 | PN ---
PROGRESS NOTE PULMONARY/CRITICAL CARE PROGRESS NOTE: DATE OF SERVICE: 01/12/2020 This is a 24-year-old gentleman who was admitted with a diagnosis of left hand, wrist and forearm cellulitis secondary to IV drug use and/or injection of patients own blood into his own vein. He does have a history of bipolar disorder, previous history of IV drug abuse, and history of mild asthma for which he is not taking any medications currently. He is doing much better. He remains on vancomycin. He states that he could be discharged home in the next 24 to 48 hours. He has been seen by Infectious Disease and also Orthopedic Surgery. No surgical intervention is needed at this time. He states his hand and wrist and forearm are feeling better. His thumb is still quite swollen and tender to palpation. Current vital signs are reviewed, temperature is 97.7, heart rate 59, respiratory rate 14, blood pressure 110/64 mean 79, room air saturation 98%. Appears in no acute distress. HEENT: Examination is grossly unremarkable. Mucous membranes are moist. No oral lesions. NECK: Supple, full range of motion. No adenopathy. Neck veins are flat. CARDIOVASCULAR: Examination reveals regular rhythm and rate. Heart rate 60 beats per minute. S1, S2 normal. No murmur. LUNGS: Reveal clear breath sounds. No wheezes, rhonchi, or crackles. ABDOMEN: Soft, bowel sounds are heard. EXTREMITIES: Intact. No cyanosis, clubbing, or edema. SKIN: Without rash. NEUROLOGIC: Examination is nonfocal. Examination separately of the left forearm, elbow, wrist and hand reveals additional swelling. The swelling has receded a bit. There is no lymphangitic streaking. The forearm and wrist are tender to palpation as is the left thumb. Microbiology is still pending or negative. LABS: Reviewed. White count 6.8, hemoglobin 12.3, hematocrit 36.9, platelet count is 155,000. C-reactive protein is 24.3. Labs are reviewed. X-rays are reviewed. ASSESSMENT: 1. Left hand, wrist and forearm cellulitis, presumably secondary to either use of IV drugs and/or injection of the patient's own blood. 2. History of bipolar disorder. 3. History of previous drug abuse. 4. History of mild asthma, not requiring treatment at this time. PLAN: The patient sees Dr. Corrales as a primary. He should follow up with Dr. Corrales when he is discharged. I am not sure when discharge will be done. Infectious disease will decide about outpatient antibiotics. Additional recommendations and suggestions are forthcoming. He is counseled about the importance of not injecting himself either with IV drugs and/or his own blood. He is obviously contaminating himself when he does that. Additional recommendations and suggestions are forthcoming. The patient may have some mild hypothyroidism. Outpatient evaluation can take place on that issue. MMODL / IJN: [id number] /
--- NOTE | 2020-01-12 13:02 | P.PN ---
Subjective Progress Note Date: 01/12/20 Principal diagnosis: Left hand cellulitis Patient is a 24-year-old male with history of IV drug abuse tried to inject into the vein. Patient then developed swelling and erythema of his left hand with progressive pain and limited range of motion. Patient has remained afebrile his blood cultures are negative to date he has been seen by orthopedic surgery and infectious disease and is currently on vancomycin states his pain is better his range of motion is improving Objective - Vital Signs Vital signs: Vital Signs Temp 97.7 F 01/12/20 06:38 Pulse 59 L 01/12/20 08:00 Resp 14 01/12/20 08:00 BP 110/64 01/12/20 06:38 Pulse Ox 98 01/12/20 06:38 Intake & Output 01/11/20 01/12/20 01/12/20 18:59 06:59 18:59 Intake Total 1550 Balance 1550 Intake: Intake, IV Titration 1550 Amount Sodium Chloride 0.9% 1, 1300 000 ml @ 130 mls/hr IV . Q7H42M [facility] Rx#:[id number] Vancomycin 1,250 mg In 250 Sodium Chloride 0.9% 250 ml @ 125 mls/hr IVPB Q8H [facility] Rx#:[id number] Other: Voiding Method Toilet Toilet Toilet # Voids 3 1 1 - Respiratory Respiratory: bilateral: CTA - Cardiovascular Rhythm: regular - Gastrointestinal General gastrointestinal: Present: normal bowel sounds - Musculoskeletal Musculoskeletal Comment(s): Swelling and erythema of the left hand with improved range of motion - Labs CBC & Chem 7: 01/12/20 06:16 01/12/20 06:16 Labs: Abnormal Lab Results - Last 24 Hours (Table) 01/12/20 01/12/20 Range/Units 06:16 06:16 Hgb 12.3 L (13.0-17.5) gm/dL Hct 36.9 L (39.0-53.0) % MCV 79.5 L (80.0-100.0) fL C-Reactive Protein 24.3 H (<10.0) mg/L Microbiology - Last 24 Hours (Table) 01/09/20 18:25 Blood Culture - Preliminary Blood No Growth after 48 hours Assessment and Plan (1) Cellulitis of left hand Narrative/Plan: Blood cultures of negative to date, continue IV vancomycin continue pain control Current Visit: Yes Status: Acute Code(s): L03.114 - CELLULITIS OF LEFT UPPER LIMB SNOMED Code(s): 71135872
[2020-01-12] MEDS ORDERED: VANCOMYCIN TROUGH DUE 1 EACH MISC MISCELLANE ONE (14:00)
[2020-01-12 15:00] VITALS: BP 113/67; PULSE 62; RESP 16; TEMP 98.7
--- NOTE | 2020-01-12 17:47 | P.DS ---
Providers Date of admission: 01/11/20 14:47 Expected date of discharge: 01/12/20 Attending physician: Lauren Davenport MD Consults: 01/10/20 08:50 Consult Physician Routine Consulting Provider: Severo Rogers Consult Reason/Comments: left hand swelling Do you want consulting provider notified?: Already Contacted 01/10/20 10:01 Consult Physician Routine Consulting Provider: David Jacobsen Consult Reason/Comments: cellulitis left hand Do you want consulting provider notified?: Yes Primary care physician: Paras Obregon - Discharge Diagnosis(es) (1) Cellulitis of left hand Patient is a 24-year-old with history of IV drug use tried injecting oxycodone but missed the vein of his forearm. Patient admitted that he has had Bactrim in the past IV drug use. Patient presented with 2 days of swelling and erythema of his left hand with limited range of motion. Current Visit: Yes Status: Acute Hospital Course: Patient was started on IV vancomycin and he remained afebrile throughout his stay. He was seen by orthopedic surgery and since patient wasn't responding to IV antibiotics managed the patient did not have an abscess and recommended continued conservative treatment. He was also seen by pulmonary and infectious disease. Patient pain improved his range of motion improved and his blood cultures remain negative. So he was changed to Bactrim recommended to follow-up with his family physician. Patient did have a elevated TSH of 5.54 but a normal free T4 recommend follow-up with his family physician. The day of discharge she is alert oriented he had a temperature 98.7, pulse is 62, Keila to 16, blood pressure 113/67 he was 97% on room air. He was alert and oriented he had less redness and swelling of his left hand he will be discharged on Bactrim double strength 1 tab every 12 hours for 7 days. Time spent 32 minutes Patient Condition at Discharge: Serious Plan - Discharge Summary Discharge Rx Participant: No New Discharge Prescriptions: New Sulfamethox-Tmp 800-160Mg [Bactrim DS 800-160 mg] 1 tab PO Q12HR #14 tab No Action lamoTRIgine 150 mg PO DAILY Buprenorphine HCl/Naloxone HCl [Zubsolv 5.7-1.4 mg Tablet Sl] 1 tab SL BID Discharge Medication List Buprenorphine HCl/Naloxone HCl [Zubsolv 5.7-1.4 mg Tablet Sl] 1 tab SL BID 01/09/20 [History] lamoTRIgine 150 mg PO DAILY 01/09/20 [History] Sulfamethox-Tmp 800-160Mg [Bactrim DS 800-160 mg] 1 tab PO Q12HR #14 tab 01/12/20 [Rx] Follow up Appointment(s)/Referral(s): [facility] [Outside] - As Needed (Therapist --- Paras Zavala DO [Primary Care Provider] - 1-2 days Discharge Disposition: HOME SELF-CARE
== END 2020-01-12 18:20 | disposition home or self-care (01) | DRG 603 ==
LOC: EC 16:09 → 5NMEDONC 19:18 → OBSVTOIN 01-11 14:47
PROVIDERS: ADMIT Internal Medicine; ATTEND Internal Medicine
PROC: 05H933Z Insertion of Infusion Device into Right Brachial Vein, Percutaneous Approach (ICD-10-PCS; principal; 2020-01-10 13:00)
DX: L03.114 Cellulitis of left upper limb (principal); F31.9 Bipolar disorder, unspecified; J45.909 Unspecified asthma, uncomplicated; Z79.899 Other long term (current) drug therapy; Z82.49 Family history of ischemic heart disease and other diseases of the circulatory system; Z87.09 Personal history of other diseases of the respiratory system; Z88.1 Allergy status to other antibiotic agents; Z91.018 Allergy to other foods
CPT/HCPCS: 36410; 36415; 76937; 80053; 80202; 82565; 84439; 84443; 85025; 86140; 87040; 96365; 96366; 99284

== ENCOUNTER → 2020-02-08 | Day surgery (SDC) | payer MEDICAID ==
[2020-02-07 10:28] VITALS: BMI 19.5
[2020-02-08 12:41] VITALS: BP 129/67; PULSE 71; RESP 16; TEMP 97.9
== END ==
LOC: CATHCVL 11:56
PROVIDERS: ATTEND Radiology Diagnostic Radiology
DX: Z45.2 Encounter for adjustment and management of vascular access device (principal); M86.9 Osteomyelitis, unspecified
CPT/HCPCS: 36410; 76937

== ENCOUNTER 2020-02-10 18:18 | Emergency (ER) | payer MEDICAID ==
[2020-02-10] MEDS ORDERED: IBUPROFEN 600 MG TAB PO STA (18:35)
--- NOTE | 2020-02-10 19:23 | ED ---
General Adult HPI - General Chief complaint: Fever Stated complaint: fever/sent by pcp Time Seen by Provider: 02/10/20 18:27 Source: patient Mode of arrival: ambulatory Limitations: no limitations - History of Present Illness Initial comments: 24-year-old male patient presents to the emergency department today for evaluation of fever. Patient states for the last 3-4 days he has had low-grade fevers today spiked up to 106F. Patient states he has had repeated infections over the last few weeks. He states that he does have a history of IV drug use b ut hasn't used in 2 years. States he was admitted recently for cellulitis of the arm which did seem to resolve. States he spiked fevers again a few days ago and they're unable to find a source. Patient denies any headache, neck pain, chest pain, cough, congestion, nausea, abdominal pain, vomiting, constipation, diarrhea. Denies any rash. Denies any hematuria, dysuria, urinary frequency, urinary urgency. States he is having some intermittent low back pain. He was sent in by Dr. Obregon who is concerned for spinal abscess. Patient denies any recent rash, chest pain, diarrhea, constipation, numbness, tingling, dizziness, weakness, visual changes, or any other complaints. - Related Data Home Medications Medication Instructions Recorded Confirmed Buprenorphine HCl/Naloxone HCl 1 tab SL BID 01/09/20 02/10/20 [Zubsolv 5.7-1.4 mg Tablet Sl] lamoTRIgine 150 mg PO DAILY 01/09/20 02/10/20 Levothyroxine Sodium [Synthroid] 75 mcg PO DAILY 02/07/20 02/10/20 Allergies Allergy/AdvReac Type Severity Reaction Status Date / Time tree nut Allergy Anaphylaxis Verified 02/10/20 19:30 vancomycin AdvReac Per Verified 02/10/20 19:30 patient "Red man syndrome". Red dots, hot flashes, and f Review of Systems ROS Statement: Those systems with pertinent positive or pertinent negative responses have been documented in the HPI. ROS Other: All systems not noted in ROS Statement are negative. Past Medical History Past Medical History: No Reported History Additional Past Medical History / Comment(s): Asthma as a child, IV drug addiction, past "blood infection" from dental procedure, recent admission for infection left hand & arm from injection of oxycodone attempt History of Any Multi-Drug Resistant Organisms: None Reported Past Surgical History: Tonsillectomy Additional Past Surgical History / Comment(s): Tonsils Past Anesthesia/Blood Transfusion Reactions: No Reported Reaction Past Psychological History: Bipolar Smoking Status: Never smoker - Past Family History Mother Family Medical History: Hypertension Additional Family Medical History / Comment(s): Kidney issue, OCD/Bipolar and other mental health issues General Exam Limitations: no limitations General appearance: alert, in no apparent distress, other (This is a well-developed, well-nourished adult male patient in no acute distress. Vital signs upon presentation are temperature 101.1F, pulse 142, respirations 18, blood pressure 126/68, pulse ox 99% on room air.) Eye exam: Present: normal appearance, PERRL, EOMI. Absent: scleral icterus, conjunctival injection, periorbital swelling ENT exam: Present: normal exam, normal oropharynx, mucous membranes moist Respiratory exam: Present: normal lung sounds bilaterally. Absent: respiratory distress, wheezes, rales, rhonchi, stridor Cardiovascular Exam: Present: regular rate, normal rhythm, normal heart sounds. Absent: systolic murmur, diastolic murmur, rubs, gallop, clicks GI/Abdominal exam: Present: soft, normal bowel sounds. Absent: distended, tenderness, guarding, rebound, rigid Back exam: Present: normal inspection, paraspinal tenderness (left lumbar). Absent: vertebral tenderness Neurological exam: Present: alert, oriented X3, CN II-XII intact Psychiatric exam: Present: normal affect, normal mood Skin exam: Present: warm, dry, intact, normal color. Absent: rash Course Vital Signs 02/10/20 02/10/20 02/10/20 18:21 20:01 21:23 Temperature 101.1 F H 98.3 F Pulse Rate 142 H 103 H 95 Respiratory 18 15 18 Rate Blood Pressure 126/68 107/73 92/56 O2 Sat by Pulse 99 98 98 Oximetry Medical Decision Making - Medical Decision Making 24-year-old male patient presents to the emergency department today for evaluation of fever for the last 4-5 days. States temperature at home was as high as 106F today. Physical examination was relatively unremarkable. Lungs are clear to auscultation. Abdomen soft and nontender. Did have some mild left lumbar paraspinal tenderness. Labs reviewed and did reveal decreased white blood cell count at 2.5, low lymphocyte count. Remainder of labs are unremarkable. Chest x-ray showed no acute abnormalities. CT of the lumbar spine with contrast was obtained and showed no evidence for paraspinal abscess or bony destruction. I did discuss findings and results with the patient. Patient does have a test scheduled in the morning. V/S are stable. Given current condition and close follow up with his primary care physician we will discharge home. Return parameters are discussed in detail. He verbalizes understanding and agrees with this plan. - Lab Data Result diagrams: 02/10/20 19:30 02/10/20 19:30 Lab Results 02/10/20 02/10/20 02/10/20 Range/Units 19:30 19:30 19:30 WBC 2.5 L (3.8-10.6) k/uL RBC 5.18 (4.30-5.90) m/uL Hgb 14.4 (13.0-17.5) gm/dL Hct 43.0 (39.0-53.0) % MCV 83.0 (80.0-100.0) fL MCH 27.8 (25.0-35.0) pg MCHC 33.5 (31.0-37.0) g/dL RDW 14.5 (11.5-15.5) % Plt Count 103 L (150-450) k/uL Neutrophils % (Manual) 70 % Band Neutrophils % 18 % Lymphocytes % (Manual) 10 % Monocytes % (Manual) 2 % Neutrophils # (Manual) 2.20 (1.3-7.7) k/uL Lymphocytes # (Manual) 0.25 L (1.0-4.8) k/uL Monocytes # (Manual) 0.05 (0-1.0) k/uL Nucleated RBCs 0 (0-0) /100 WBC Manual Slide Review Performed Toxic Vacuolation Present RBC Morphology Normal PT 13.9 H (9.0-12.0) sec INR 1.4 H (<1.2) APTT 23.0 (22.0-30.0) sec Sodium 135 L (137-145) mmol/L Potassium 4.0 (3.5-5.1) mmol/L Chloride 97 L (98-107) mmol/L Carbon Dioxide 23 (22-30) mmol/L Anion Gap 15 mmol/L BUN 18 (9-20) mg/dL Creatinine 0.94 (0.66-1.25) mg/dL Est GFR (CKD-EPI)AfAm >90 (>60 ml/min/1.73 sqM) Est GFR (CKD-EPI)NonAf >90 (>60 ml/min/1.73 sqM) Glucose 84 (74-99) mg/dL Plasma Lactic Acid Jamal (0.7-2.0) mmol/L Calcium 9.7 (8.4-10.2) mg/dL Total Bilirubin 2.2 H (0.2-1.3) mg/dL AST 35 (17-59) U/L ALT 18 (4-49) U/L Alkaline Phosphatase 129 H (38-126) U/L Total Protein 8.0 (6.3-8.2) g/dL Albumin 4.8 (3.5-5.0) g/dL Urine Color Urine Appearance (Clear) Urine pH (5.0-8.0) Ur Specific [place] (1.001-1.035) Urine Protein (Negative) Urine Glucose (UA) (Negative) Urine Ketones (Negative) Urine Blood (Negative) Urine Nitrite (Negative) Urine Bilirubin (Negative) Urine Urobilinogen (<2.0) mg/dL Ur Leukocyte Esterase (Negative) Urine RBC (0-5) /hpf Urine WBC (0-5) /hpf Urine Mucus (None) /hpf 02/10/20 02/10/20 Range/Units 19:30 19:30 WBC (3.8-10.6) k/uL RBC (4.30-5.90) m/uL Hgb (13.0-17.5) gm/dL Hct (39.0-53.0) % MCV (80.0-100.0) fL MCH (25.0-35.0) pg MCHC (31.0-37.0) g/dL RDW (11.5-15.5) % Plt Count (150-450) k/uL Neutrophils % (Manual) % Band Neutrophils % % Lymphocytes % (Manual) % Monocytes % (Manual) % Neutrophils # (Manual) (1.3-7.7) k/uL Lymphocytes # (Manual) (1.0-4.8) k/uL Monocytes # (Manual) (0-1.0) k/uL Nucleated RBCs (0-0) /100 WBC Manual Slide Review Toxic Vacuolation RBC Morphology PT (9.0-12.0) sec INR (<1.2) APTT (22.0-30.0) sec Sodium (137-145) mmol/L Potassium (3.5-5.1) mmol/L Chloride (98-107) mmol/L Carbon Dioxide (22-30) mmol/L Anion Gap mmol/L BUN (9-20) mg/dL Creatinine (0.66-1.25) mg/dL Est GFR (CKD-EPI)AfAm (>60 ml/min/1.73 sqM) Est GFR (CKD-EPI)NonAf (>60 ml/min/1.73 sqM) Glucose (74-99) mg/dL Plasma Lactic Acid Jamal 2.1 H* (0.7-2.0) mmol/L Calcium (8.4-10.2) mg/dL Total Bilirubin (0.2-1.3) mg/dL AST (17-59) U/L ALT (4-49) U/L Alkaline Phosphatase (38-126) U/L Total Protein (6.3-8.2) g/dL Albumin (3.5-5.0) g/dL Urine Color Yellow Urine Appearance Clear (Clear) Urine pH 6.0 (5.0-8.0) Ur Specific [place] 1.019 (1.001-1.035) Urine Protein 1+ H (Negative) Urine Glucose (UA) Negative (Negative) Urine Ketones Negative (Negative) Urine Blood Moderate H (Negative) Urine Nitrite Negative (Negative) Urine Bilirubin Negative (Negative) Urine Urobilinogen 2.0 (<2.0) mg/dL Ur Leukocyte Esterase Negative (Negative) Urine RBC 2 (0-5) /hpf Urine WBC 1 (0-5) /hpf Urine Mucus Rare H (None) /hpf - Radiology Data Radiology results: report reviewed, image reviewed CT lumbar spine with contrast was obtained. Report reviewed in its entirety. Impression by Dr. Harper shows negative computed tomography scan lumbar spine. No evidence of an abscess. No evidence of osteomyelitis. Two-view x-ray of the chest is obtained. Report is reviewed in its entirety. Impression by Dr. Harper shows normal chest. No change. Disposition Clinical Impression: Fever, Leukopenia Disposition: HOME SELF-CARE Condition: Good Instructions (If sedation given, give patient instructions): Fever in Adults (ED) Additional Instructions: Increase fluids. Take Tylenol and Motrin for pain and fever control. Follow up with Dr. Obregon as soon as possible. Return for any other new, worsening, or concerning symptoms. Is patient prescribed a controlled substance at d/c from ED?: No Referrals: Paras Obregon DO [Primary Care Provider] - 1-2 days Time of Disposition: 21:17
[2020-02-10 19:51] LABS: Appearance,Urine Clear (Clear); Bilirubin,Urine Negative (Negative); Blood,Urine Moderate (Negative); Color,Urine Yellow; Glucose,Urine (UA) Negative (Negative); Ketones,Urine Negative (Negative); Leukocyte Esterase,Urine Negative (Negative); Mucus,Urine Rare /hpf; Nitrite,Urine Negative (Negative); Protein,Urine 1+ (Negative); RBC,Urine 2 /hpf (0-5); Specific Gravity,Urine 1.019 (1.001-1.035); WBC,Urine 1 /hpf (0-5)
--- NOTE | 2020-02-10 19:53 | XR ---
EXAMINATION TYPE: XR chest 2V DATE OF EXAM: 02/10/2020 COMPARISON: 12/14/2016 HISTORY: Fever TECHNIQUE: 2 views FINDINGS: Heart and mediastinum are normal. Lungs are clear. Diaphragm is normal. Bony thorax appears normal. IMPRESSION: Normal chest. No change.
[2020-02-10] MEDS: SODIUM CHLORIDE 0.9% 500 ML 500 ML IV SCH ×2 (20:00→20:01)
[2020-02-10 20:02] LABS: ALT 18 U/L (4-49); AST 35 U/L (17-59); African American GFR (CKD) >90 (>60 ml/min/1.73 sqM); Albumin 4.8 g/dL (3.5-5.0); Alkaline Phosphatase 129 U/L (38-126); Anion Gap 15 mmol/L; Blood Urea Nitrogen 18 mg/dL (9-20); Calcium 9.7 mg/dL (8.4-10.2); Carbon Dioxide 23 mmol/L (22-30); Chloride 97 mmol/L (98-107); Glucose 84 mg/dL (74-99); Non-African American GFR(CKD) >90 (>60 ml/min/1.73 sqM); Sodium 135 mmol/L (137-145); Total Bilirubin 2.2 mg/dL (0.2-1.3)
[2020-02-10 20:03] VITALS: TEMP 98.3
--- NOTE | 2020-02-10 20:08 | CT ---
EXAMINATION TYPE: CT lumbar spine w con DATE OF EXAM: 02/10/2020 COMPARISON: None HISTORY: back pain, fever. hx of recent cellulitis infection. CT DLP: 665.6 mGycm Automated exposure control for dose reduction was used. CONTRAST: Performed with IV Contrast, patient injected with 100 mL of Isovue 300. Multiple axial sections were obtained from the level of T10-S2 vertebra with intravenous contrast. Lumbar vertebra have normal spacing and alignment. Posterior elements are intact. I see no focal bone destruction. There is no lumbar paraspinal mass. There is no spinal stenosis. Sacroiliac joints appe ar intact. There is no pathologic enhancement. IMPRESSION: Negative CT scan of the lumbar spine. No evidence of an abscess. No evidence of osteomyelitis.
[2020-02-10 20:11] LABS: HGB 14.4 gm/dL (13.0-17.5); MCH 27.8 pg (25.0-35.0); MCHC 33.5 g/dL (31.0-37.0); Platelet Count 103 k/uL (150-450); RBC 5.18 m/uL (4.30-5.90); RDW 14.5 % (11.5-15.5); WBC 2.5 k/uL (3.8-10.6)
[2020-02-10 20:13] LABS: INR 1.4 (<1.2); Prothrombin Time 13.9 sec (9.0-12.0)
[2020-02-10 20:51] LABS: Band Neutrophils % 18 %; Lymphocytes # (M) 0.25 k/uL (1.0-4.8); Monocytes # (M) 0.05 k/uL (0-1.0); Neutrophils % (M) 70 %; Nucleated Red Blood Cells 0 /100 WBC (0-0); Total Cells Counted 100
[2020-02-10 20:52] LABS: Toxic Vacuolation Present
[2020-02-10] MEDS ORDERED: ONDANSETRON 4 MG/2 ML VIAL IVP PRN (21:08)
[2020-02-10] MEDS ORDERED: NALOXONE 0.4 MG/ML 1 ML VIAL IV PRN (21:08)
[2020-02-10] MEDS ORDERED: ACETAMINOPHEN TAB 325 MG TAB PO PRN (21:08)
[2020-02-10] MEDS ORDERED: IBUPROFEN 600 MG TAB PO PRN (21:11)
[2020-02-10] MEDS ORDERED: SODIUM CHLORIDE 0.9% 1,000 ML IV SCH (21:15)
[2020-02-10 21:24] VITALS: RESP 18
[2020-02-10] MEDS ORDERED: SODIUM CHLORIDE 0.9% 1,000 ML IV STA (22:47)
[2020-02-10 22:58] VITALS: BP 126/78; PULSE 78
== END 2020-02-10 22:57 | disposition home or self-care (01) ==
LOC: EC 18:18
DX: D72.819 Decreased white blood cell count, unspecified (principal); R50.9 Fever, unspecified; M54.5 Low back pain; F31.9 Bipolar disorder, unspecified; Z79.890 Hormone replacement therapy; Z79.899 Other long term (current) drug therapy; Z88.1 Allergy status to other antibiotic agents; Z91.030 Bee allergy status
CPT/HCPCS: 36415; 80053; 83605; 85025; 85610; 85730; 81001; 87040; 87635; 71046; 72132; 99284; 96360; Q9967

== ENCOUNTER → 2020-02-11 | Outpatient (CLI) | payer MEDICAID ==
--- NOTE | 2020-02-11 15:00 | US ---
EXAMINATION TYPE: US guide vascular access DATE OF EXAM: 02/11/2020 HISTORY: Needs IV access for white blood cell scan. PROCEDURE: Maximal barrier technique utilized. The skin overlying the basilic vein was localized with ultrasoun d and the vein was noted to be compressible and patent by ultrasound and ultrasound image was obtaine d and submitted on patient's chart. Under direct ultrasound guidance a 20-gauge Angiocath was advanc ed into the vein and fixed in place. Catheter was aspirated and flushed with sterile saline. Hemost asis achieved. Catheter fixed in place. No immediate complication. IMPRESSION: Ultrasound-guided venipuncture, this procedure performed by the undersigned.
--- NOTE | 2020-02-12 15:53 | NM ---
EXAMINATION TYPE: NM WBC whole body DATE OF EXAM: 02/12/2020 COMPARISON: NONE HISTORY: Osteomyelitis TECHNIQUE: Following administration of 10.1 mCi Tc99m Ceretec. Images obtained 4 hour(s) and 22 shara r(s) post injection. FINDINGS: Normal physiological tracer activity is noted in the liver and spleen and in the bone marrow of the a xial and appendicular skeleton. Within the left forearm there are foci of uptake identified within the dorsum of the soft tissues lat erally and peripherally and also within the proximal to mid forearm dorsally and medially. IMPRESSION: Uptake within the left forearm suggests soft tissue infection, correlate.
== END | disposition home or self-care (01) ==
LOC: RADNMMAIN 02-07 07:07
PROVIDERS: ATTEND Internal Medicine Critical Care Medicine
DX: M86.9 Osteomyelitis, unspecified (principal)
CPT/HCPCS: 76937